=== PATIENT | female | born 1950 | race Caucasian/White ===

== ENCOUNTER → 2017-02-15 | Outpatient (CLI) | payer OTHER ==
[~2017-02-15] MED LIST: BENADRYL25 MG PO; COZAAR 25 MG TA25 M1 PO; CYANOCOBAL-LEV1 EACH PO; FLONASE 0.05%50 MCG NASAL; JANUMET 50-1,01 EACH PO; LEVOTHYROXIN0.075 MG PO; LOPRESSOR50 PO; NEXIUM 24HR20 MG PO; NEXIUM40 MG PO; PROZAC10 MG PO; TOPROL XL50 MG PO; VITAMIN B-12500 MCG PO; VITAMIN D1000 UNI1 PO
== END ==
LOC: M.RAD 09:29
DX: Z12.31 Encounter for screening mammogram for malignant neoplasm of breast (principal); M85.88 Other specified disorders of bone density and structure, other site; Z78.0 Asymptomatic menopausal state

== ENCOUNTER → 2019-01-16 | Outpatient (CLI) | payer OTHER | LOC: M.RAD 11:06 | DX: Z12.31 Encounter for screening mammogram for malignant neoplasm of breast (principal) ==

== ENCOUNTER → 2019-04-01 | Outpatient (CLI) | payer OTHER | LOC: M.ULTRA 12:50 | DX: N60.01 Solitary cyst of right breast (principal); R92.2 Inconclusive mammogram ==

== ENCOUNTER → 2019-04-16 | Outpatient (CLI) | payer OTHER | LOC: M.RAD 15:03 | DX: N95.1 Menopausal and female climacteric states (principal) ==

== ENCOUNTER → 2020-06-09 | Outpatient (CLI) | payer OTHER | LOC: M.RAD 04-13 14:50 | PROVIDERS: ATTEND Family Medicine | DX: Z12.31 Encounter for screening mammogram for malignant neoplasm of breast (principal) ==